=== PATIENT | male | born 1930 | race Caucasian/White ===

== ENCOUNTER 2016-12-12 16:56 | Emergency (ER) | payer OTHER ==
--- NOTE | 2016-12-12 17:12 | EDPHY ---
H & P Stated Complaint: Mechanical fall, hit head, LOC. Time Seen by Provider: 12/12/16 17:12 HPI/ROS: HPI: This is an 86-year-old male presents with Chief Complaint: Walker a/c. mech fall. a+Ox4. possible LOC. hypertense Location: Head Quality: Injury Duration: Prior to arrival Signs and Symptoms: ? Transient LOC less than a few seconds, No bleeding, no radiation, no numbness, no weakness, no tingling, no incontinence, no decreased range of motion, no neck pain, no headache Timing: Sudden Severity: [id number] Context: Patient presents via EMS from independent living facility where he was using his walker and accidentally ran into another patient use in their walker and they both fell, which was witnessed. Patient fell directly backwards hitting the back of his head on the tile floor. 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 EMS was called who noted that patient had a GCS of 15; appropriate; denied any pain. Patient takes a baby aspirin daily. Modifying Factors: None Comment: ROS: see HPI Constitutional: No fever, no chills, no weight loss Eyes: No blurred vision Respiratory: No shortness of breath, no cough Cardiovascular: No chest pain Gastrointestinal: No nausea, no vomiting no diarrhea Genitourinary: No dysuria Extremities: No myalgias Neurologic: No weakness, no numbness Skin: No rashes Hematologic: No bruising, no bleeding MEDICAL/SURGICAL/SOCIAL HISTORY: Medical history: HTN, DM2, Prostate cancer Surgical history: Left hip surgery. Social history: Lives in independent living facility CONSTITUTIONAL: Talkative, polite elderly white male, awake and alert, no obvious distress HEENT: 4 mm contusion noted parietal scalp and normocephalic, PERRL, EOMI. no globe entrapment, no raccoon eyes. no Dangelo signs. Tympanic membranes clear. No tympanic membrane rupture. Nares patent; no septal hematoma. Oropharynx clear, no exudate and moist pink mucosa. No malocclusion. no dental trauma. Airway patent. No lymphadenopathy. NECK: supple, no midline tenderness, flexion 45 degrees, extension 45 degrees, right and left lateral flexion 45 degrees. No meningismus. Cardiovascular: Normal S1/S2, regular rate, regular rhythm, without murmur rub or gallop. PULMONARY/CHEST: Symmetrical and nontender. no crepitus. Clear to auscultation bilaterally. Good air movement. No accessory muscle usage. ABDOMEN: Soft, nondistended, nontender, no ecchymosis, no rebound, no guarding , no peritoneal signs, no masses or organomegaly. No CVAT. PELVIC: no pain with rocking; bilateral hips flexion 125 degrees, extension 30 degrees, with no pain internal rotation and no pain external rotation. BACK: No midline tenderness, no paraspinous spasm, deep tendon reflexes 2/2, no pain with straight leg raise EXTREMITIES: 2/2 pulses, no deformities, no clubbing, no cyanosis or edema. NEUROLOGICAL: no focal neuro deficits. GCS 15. Follows 2 step commands. Alert and oriented x 4. SKIN: Warm and dry, no erythema. no rash. Good capillary refill. Source: Patient Exam Limitations: No limitations - Personal History Current Tetanus Diphtheria and Acellular Pertussis (TDAP): Yes - Medical/Surgical History Hx Asthma: No Hx Chronic Respiratory Disease: No Hx Diabetes: Yes Hx Cardiac Disease: No Hx Renal Disease: No Hx Cirrhosis: No Hx Alcoholism: No Hx HIV/AIDS: No Hx Splenectomy or Spleen Trauma: No Other PMH: HTN, DM2. Left hip surgery. Prostate cancer - Social History Smoking Status: Never smoked Constitutional: Initial Vital Signs Temperature (C) 36.4 C 12/12/16 17:02 Heart Rate 99 12/12/16 17:02 Respiratory Rate 16 12/12/16 17:02 Blood Pressure 171/119 H 12/12/16 17:02 O2 Sat (%) 94 12/12/16 17:02 O2 Delivery Mode Room Air Allergies/Adverse Reactions: flu vaccination Allergy (Uncoded 12/12/16 17:09) lupron Allergy (Uncoded 12/12/16 17:09) Home Medications: Medication Instructions Recorded Aspirin 12/12/16 Glipizide 12/12/16 Lisinopril 12/12/16 Metformin HCl 12/12/16 Pravastatin Sodium 12/12/16 Verapamil 12/12/16 Medical Decision Making - Diagnostics Imaging Results: Imaging Impressions Cervical Spine CT 12/12/16 17:03 Impression: 1. No evidence for acute intracranial abnormality. 2. Moderate periventricular and deep hemispheric white matter change can be seen with small vessel ischemic disease. 3. Generalized cerebral atrophy. 4. Other chronic findings as above. CT Cervical Spine Without Contrast History: Fall. Pain. Technique: 1.5 mm helical images were obtained the cervical spine without contrast. Multiplanar reformation was performed. Radiation dose reduction technique was utilized. Findings: There is mild reversal of the normal lordotic curvature. No evidence for fracture or subluxation. Disk height narrowing and osteophytosis at C3-C4 through C6-C7. Multiple levels of uncovertebral joint hypertrophy and spurring and facet arthropathy. Calcifications are seen in the carotid arteries bilaterally. A rim calcified nodule is seen in the right thyroid gland measuring 2 cm. Lung apices are clear. C2-C3 level demonstrates uncovertebral joint hypertrophy bilaterally. Facet arthropathy is seen more severe on the left. Mild left neural foraminal narrowing. C3-C4 level demonstrates uncovertebral joint hypertrophy and spurring bilaterally and facet arthropathy. Severe left and moderate right neural foraminal narrowing. C4-C5 level demonstrates broad-based annular bulge mildly effacing the anterior thecal sac. Uncovertebral joint hypertrophy and spurring is seen bilaterally and facet arthropathy. Severe left and mild right neural foraminal narrowing. C5-C6 level demonstrates uncovertebral joint hypertrophy and spurring, more severe on the right. Moderate to severe right and mild left neural foraminal narrowing. C6-C7 level demonstrates a broad-based annular bulge and posterior osteophytosis causing moderate to severe central spinal canal narrowing. Uncovertebral joint hypertrophy and spurring is causing severe bilateral neural foraminal narrowing. C7-T1 level demonstrate mild facet arthropathy causing no significant encroachment Impression: 1. No evidence for acute fracture of the cervical spine. 2. 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 3. Evidence of atherosclerotic disease in the carotid arteries bilaterally. 4. Rim calcified 2 cm nodule right thyroid gland. Consider ultrasound for further evaluation. Results called and discussed with Theresa Montiel on 12/12/2016, [address] 12/12/16 17:03 Impression: 1. No evidence for acute intracranial abnormality. 2. Moderate periventricular and deep hemispheric white matter change can be seen with small vessel ischemic disease. 3. Generalized cerebral atrophy. 4. Other chronic findings as above. CT Cervical Spine Without Contrast History: Fall. Pain. Technique: 1.5 mm helical images were obtained the cervical spine without contrast. Multiplanar reformation was performed. Radiation dose reduction technique was utilized. Findings: There is mild reversal of the normal lordotic curvature. No evidence for fracture or subluxation. Disk height narrowing and osteophytosis at C3-C4 through C6-C7. Multiple levels of uncovertebral joint hypertrophy and spurring and facet arthropathy. Calcifications are seen in the carotid arteries bilaterally. A rim calcified nodule is seen in the right thyroid gland measuring 2 cm. Lung apices are clear. C2-C3 level demonstrates uncovertebral joint hypertrophy bilaterally. Facet arthropathy is seen more severe on the left. Mild left neural foraminal narrowing. C3-C4 level demonstrates uncovertebral joint hypertrophy and spurring bilaterally and facet arthropathy. Severe left and moderate right neural foraminal narrowing. C4-C5 level demonstrates broad-based annular bulge mildly effacing the anterior thecal sac. Uncovertebral joint hypertrophy and spurring is seen bilaterally and facet arthropathy. Severe left and mild right neural foraminal narrowing. C5-C6 level demonstrates uncovertebral joint hypertrophy and spurring, more severe on the right. Moderate to severe right and mild left neural foraminal narrowing. C6-C7 level demonstrates a broad-based annular bulge and posterior osteophytosis causing moderate to severe central spinal canal narrowing. Uncovertebral joint hypertrophy and spurring is causing severe bilateral neural foraminal narrowing. C7-T1 level demonstrate mild facet arthropathy causing no significant encroachment Impression: 1. No evidence for acute fracture of the cervical spine. 2. 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 3. Evidence of atherosclerotic disease in the carotid arteries bilaterally. 4. Rim calcified 2 cm nodule right thyroid gland. Consider ultrasound for further evaluation. Results called and discussed with Theresa Montiel on 12/12/2016, 1828 hours. ED Course/Re-evaluation: Head CT scan, CT cervical scan ordered ? Transient a few seconds LOC No signs of neurovascular compromise/tenting of skin/compartment syndrome/ extremities and joints examined above and below area of concern and are neurovascularly intact. 1805: CT head reviewed via PACs and shows no acute intracranial process. CT cervical reviewed via PACs and shows degenerative changes but no fracture. 1825: Called by Radiology who advised head CT scan has no acute intracranial process. CT cervical scan shows degenerative disc disease as well as 2 cm right thyroid mass which he recommends follow up outpatient with an ultrasound. Differential Diagnosis: Head injury including but not limited to concussion, skull fracture, intraparenchymal contusion, subarachnoid, subdural and epidural hematoma. 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 It does show a 2 cm right thyroid mass and it is recommended to follow up outpatient with thyroid ultrasound in the next several weeks. Please apply ice to scalp contusion several times per day for the next 1-2 days. You may take Tylenol 650 mg every 4-6 hours as needed for headache. Monitor for signs and symptoms of concussion. Follow fall precautions. Referrals: MICHAEL AMBRIZ [Primary Care Provider] - 5-7 days, call for appt.
[2016-12-12 19:12] VITALS: BP 179/118; PULSE 107; RESP 17; TEMP 98.4; O2SAT 93
== END 2016-12-12 19:12 | disposition home or self-care (01) ==
LOC: EDUNIT#
DX: S00.03XA Contusion of scalp, initial encounter (principal); W18.09XA Striking against other object with subsequent fall, initial encounter; M47.812 Spondylosis without myelopathy or radiculopathy, cervical region; E07.9 Disorder of thyroid, unspecified; I10 Essential (primary) hypertension; E11.9 Type 2 diabetes mellitus without complications; Z85.46 Personal history of malignant neoplasm of prostate; Z79.82 Long term (current) use of aspirin; Z79.84 Long term (current) use of oral hypoglycemic drugs